=== PATIENT | female | born 1970 | race African-American/Black ===

== ENCOUNTER 2018-01-03 18:04 | Emergency (ER) | payer SELFPAY ==
[2018-01-03 18:41] LABS: URINE HCG POC HCG NEGATIVE (Negative)
[2018-01-03 19:02] LABS: BILIRUBIN,URINE NEGATIVE (NEG); CLARITY,URINE CLEAR; COLOR,URINE YELLOW; GLUCOSE,URINE NEGATIVE (NEG); NITRITE,URINE NEGATIVE (NEG); PROTEIN,URINE NEGATIVE (NEG-TRACE)
[2018-01-03 19:13] LABS: BACTERIA,URINE 0 /HPF (0-FEW); RBC,URINE 0 /HPF (0-2); SQUAMOUS EPITHELIAL CELL,UR FEW /LPF; WBC,URINE OCC /HPF (0-4)
== END 2018-01-03 19:20 | disposition home or self-care (01) ==
LOC: ER 18:04
DX: L03.312 Cellulitis of back [any part except buttock and flank] (principal); L03.113 Cellulitis of right upper limb; B95.62 Methicillin resistant Staphylococcus aureus infection as the cause of diseases classified elsewhere; F17.210 Nicotine dependence, cigarettes, uncomplicated; I10 Essential (primary) hypertension
CPT/HCPCS: 81001; 81025; 99283

== ENCOUNTER 2020-03-03 19:49 | Emergency (ER) | payer SELFPAY ==
[~2020-03-03] VITALS: Ht 157.5 cm; Wt 59.0 kg
[~2020-03-03 19:49] MED LIST: HYDR25TA PO; METH5TAB2 PO; SULF1TAB24 PO
--- NOTE | 2020-03-03 20:57 | PHYS DOC ---
Past Medical History Past Medical History: Hypertension, Other Additional Past Medical Histor: pain medication addiction; fibroid tumors (CODY SHI APRN) Past Surgical History: Tonsillectomy, Other (CODY SHI APRN) Smoking Status: Current Every Day Smoker Alcohol Use: Rarely Drug Use: None (CODY SHI APRN) General Adult EDM: Chief Complaint: UPPER EXTREMITY PAIN HPI: HPI: Patient is a 50 year old AA female who presents to the emergency department with complaints of left wrist pain. Patient states that yesterday she was trying to hang up a curtain when the chair fell out from underneath her and she fell onto her left arm. She denies any numbness, tingling, or weakness of the affected extremity. She denies any decreased range of motion however reports pain with range of motion. Patient also complains of a pressure-like feeling behind her left eye, into her left ear, and into the left side of her nose. She denies any vision changes, nausea, vomiting, abdominal pain, neck pain, sore throat, fever, cough, shortness of breath, rash, or wheezing. Patient denies any runny nose or stuffy nose. She denies any maxillary tenderness to palpation. She states that the discomfort in the left side of her head is been going on for weeks. She currently rates her discomfort a 8 out of 10 on the pain scale she denies any alleviating factors or worsening factors to her head pain. She states that her wrist pain gets worse with palpation and movement. (CODY SHI APRN) Review of Systems: Review of Systems: Constitutional: Denies fever or chills. [] Eyes: Denies change in visual acuity. [] HENT: See HPI Respiratory: Denies cough or shortness of breath. [] Cardiovascular: Denies chest pain or edema. [] GI: Denies abdominal pain, nausea, vomiting, or diarrhea. [] : Denies dysuria. [] Musculoskeletal: See HPI Integument: Denies rash. [] Neurologic: Denies headache, focal weakness or sensory changes. [] Endocrine: Denies polyuria or polydipsia. [] Lymphatic: Denies swollen glands. [] Psychiatric: Denies depression or anxiety. [] (CODY SHI APRN) Heart Score: Risk Factors: Risk Factors: DM, Current or recent (<one month) smoker, HTN, HLP, family history of CAD, obesity. Risk Scores: Score 0 - 3: 2.5% MACE over next 6 weeks - Discharge Home Score 4 - 6: 20.3% MACE over next 6 weeks - Admit for Clinical Observation Score 7 - 10: 72.7% MACE over next 6 weeks - Early Invasive Strategies (CODY SHI APRN) Allergies: Allergies: Allergies Coded Allergies Type Severity Reaction Last Updated Verified No Known Drug Allergies 07/11/14 No (CODY SHI APRN) Physical Exam: PE: Constitutional: Well developed, well nourished, no acute distress, non-toxic appearance. [] HENT: Normocephalic, atraumatic, bilateral external ears normal, bilateral TMs normal, posterior pharynx normal, oropharynx moist, no oral exudates; right nasal turbinates edematous and erythematous left nasal turbinates normal Eyes: PERRLA, EOMI, conjunctiva normal, no discharge. [] Neck: Normal range of motion, no tenderness, supple, no stridor. [] Cardiovascular:Heart rate regular rhythm, no murmur [] Lungs & Thorax: Bilateral breath sounds clear to auscultation, Respirations even and unlabored, no retractions, no respiratory distress [] Skin: Warm, dry, no erythema, no rash. [] Extremities: Left wrist: Diffuse bony tenderness to palpation without crepitus, no obvious deformity, no cyanosis, no clubbing, ROM intact, no edema. [] Neurologic: Alert and oriented X 3, normal motor function, normal sensory function, no focal deficits noted. [] Psychologic: Affect normal, judgement normal, mood normal. [] (CODY SHI APRN) Current Patient Data: Vital Signs: Vital Signs Date Time Temp Pulse Resp B/P (MAP) Pulse Ox O2 Delivery O2 Flow Rate FiO2 03/03/20 20:20 98.7 88 18 184/79 (114) 99 Room Air 98.7 (CODY SHI APRN) EKG: EKG: [] (CODY SHI APRN) Radiology/Procedures: Radiology/Procedures: Left wrist x-ray negative for any acute findings read by Dr. Jj [] (CODY SHI APRN) Course & Med Decision Making: Course & Med Decision Making Pertinent Labs and Imaging studies reviewed. (See chart for details) [] (CODY SHI APRN) Dragon Disclaimer: Dragon Disclaimer: This electronic medical record was generated, in whole or in part, using a voice recognition dictation system. (CODY SHI APRN) Departure Departure Impression: Primary Impression: Allergic rhinitis Qualified Codes: J30.9 - Allergic rhinitis, unspecified Additional Impression: Acute pain of left wrist Disposition: HOME, SELF-CARE Condition: STABLE Referrals: CODY SHI APRN (PCP) DIAMOND GASPAR MD, NICHOLAS S II MD Patient Instructions: Allergic Rhinitis, Wrist Pain, [id number] Additional Instructions: Follow-up with Dr. Diamond Gaspar for further evaluation by an operator bearer systems. I recommend that you wear the Velcro wrist splint that was applied as needed for comfort. Take Tylenol or ibuprofen as needed for pain. Follow-up with Dr. Chandrakant Gaspar if wrist pain persists. Return to the ER if fever develops or symptoms worsen. Scripts Fluticasone Propionate (Flonase Allergy Relief) 9.9 Ml [place].susp 2 SPRAYS NS DAILY for 30 Days, #1 BOTTLE 0 Refills Prov: CODY SHI APRN 03/03/20 Justicifation of Admission Dx: Justifications for Admission: Justification of Admission Dx: N/A (CODY SHI APRN) Splinting Splinting : Location: Left wrist Pre-Made Type: velcro (Wrist splint) Pre-Proc Neuro Vasc Exam: normal Post-Proc Neuro Vasc Exam: normal, unchanged from pre-exam (CODY SHI APRN) Attending Signature Attending Signature I have reviewed the PA/IMAGING ANALYST's note and plan of care. I was available for consultation as needed during the patient's visit in the emergency department. I agree with the clinical impression, plan, and disposition. (ROBERT JJ DO) CODY SHI APRN Mar 03, 2020 20:57 ROBERT JJ DO Mar 04, 2020 05:12
[2020-03-03] MEDS ORDERED: FLUT9.9S NS (21:05)
[2020-03-03 21:19] VITALS: BP 140/108
--- NOTE | 2020-03-03 21:36 | RAD ---
WRIST 3V LEFT DATE: 03/03/2020 8:54 PM INDICATION: Reason: L WRIST PAIN AFTER FALL 2 DAYS AGO / Spl. Instructions: / History: COMPARISON: None. FINDINGS: Bones: There is no evidence of acute fracture or dislocation. Joints: The joint spaces are normal. Miscellaneous: None. IMPRESSION: No evidence of acute fracture. Electronically signed by: Fahad Bowen MD (03/03/2020 9:32 PM) [id number]
== END 2020-03-03 21:20 | disposition home or self-care (01) ==
LOC: ER 19:49
DX: M25.532 Pain in left wrist (principal); J30.9 Allergic rhinitis, unspecified; I10 Essential (primary) hypertension; F17.200 Nicotine dependence, unspecified, uncomplicated; Z90.89 Acquired absence of other organs; Z98.890 Other specified postprocedural states
CPT/HCPCS: 29125; 73110; 99284